=== PATIENT | male | born 1980 | race Caucasian/White ===

== ENCOUNTER 2024-08-16 08:38 | Emergency (ER) | payer OTHER, SELFPAY ==
[2024-08-16 08:56] VITALS: BP 123/78; PULSE 62; RESP 16; TEMP 36.4; O2SAT 99
--- NOTE | 2024-08-16 09:24 | ED.EYEPROB ---
HPI - Eye Problem General Chief complaint: Eye Problems Stated complaint: Right Eye Problem Time Seen by Provider: 08/16/24 09:25 Source: patient Mode of arrival: ambulatory Limitations: no limitations History of Present Illness HPI Narrative: 44-year-old male presented for complaint of right eye redness and irritation for about 6 days. Endorses redness to the outer eye and some clear drainage with crust in the mornings. Reports pain when he closes his eye. Denies photophobia or vision changes or foreign body sensation. He has rinsed the eye with saline. chief complaint: eye pain Related Data Allergies Allergy/AdvReac Type Severity Reaction Status Date / Time No Known Allergies Allergy Verified 08/16/24 08:54 Review of Systems Review of Systems: CONSTITUTIONAL: Denies body aches, fever, chills EYES:Endorses redness drainage, and pain to right eye; Denies swelling, visual changes,FB sensation, photophobia ENT: Denies rhinorrhea, congestion, sore throat, or otalgia. CARDIOVASCULAR: Denies chest pain, palpitations RESPIRATORY: Denies cough or dyspnea. GASTROINTESTINAL: Denies abdominal pain, nausea, vomiting, or diarrhea. SKIN: Denies rash, itching, or wounds. MUSCULOSKELETAL: Denies back pain, joint pain, or myalgia. NEUROLOGIC: Denies headache, numbness, tingling, or weakness. All systems reviewed & are unremarkable except as noted in HPI and below PMFSH Comments At time of signature, I have reviewed and agree with nursing past medical, surgical, social and family history unless otherwise noted. Please see nursing chart for further information. There is no relevant family history pertinent to the presenting complaint Exam Narrative: GENERAL: Well-appearing HEAD: Normocephalic, atraumatic. EYES: right conjunctival injection, right lateral lower lid with pinpoint external hordeolum. no eye lid swelling/redness/drainage. PERRLA EOMI. Lid eversion shows no FB. No corneal abrasion on del angel lamp exam. ENT: Mucous membranes pink and moist. No rhinorrhea. CHEST: Clear to auscultation. HEART: Regular rate and rhythm. SKIN: Warm, dry, no rash. Normal skin turgor. Course Course Emergency Course: Patient is aware of diagnosis, understands and agrees to treatment plan. Anticipatory guidance given. Patient agrees to follow-up as directed and is aware of reasons to seek care at the emergency department. Portions of this record may have been created with voice recognition software Level of Care: Express Care Visit Vital Signs Vital signs: Vital Signs Temperature 97.5 F L 08/16/24 08:56 Pulse Rate 62 08/16/24 08:56 Respiratory Rate 16 08/16/24 08:56 Blood Pressure 123/78 08/16/24 08:56 Pulse Oximetry 99 08/16/24 08:56 Oxygen Delivery Room Air 08/16/24 08:56 Temperature 97.5 F L 08/16/24 08:56 Pulse Rate 62 08/16/24 08:56 Respiratory Rate 16 08/16/24 08:56 Blood Pressure 123/78 08/16/24 08:56 Pulse Oximetry 99 08/16/24 08:56 Oxygen Delivery Room Air 08/16/24 08:56 Procedures FB Removal Eye Foreign Body #1: Topical anesthetic used: tetracaine Evidence of corneal penetration: No Technique: other (del angel lamp) Procedure performed under: other (direct visualization) Patient tolerated procedure: well and no complications Foreign Body Removal Narrative: right eye was anesthetized with 1 drop of tetracaine and anesthesia was achieved. Lid was everted and examined for foreign body. No foreign body, corneal abrasion, or ulceration identified with Del Angel lamp. The eye was flushed with eye wash. Pt tolerated procedure well. MDM - Eye Problem MDM Narrative Medical decision making narrative: Discussed physical exam findings.Reviewed RX. Advised supportive measures and signs/symptoms to go to the ER. Pt is appropriate for outpt treatment and f/u. Differential Diagnosis Differential diagnosis: Likely corneal abrasi
== END 2024-08-16 09:51 | disposition home or self-care (01) ==
PROVIDERS: Emergency Provider Nurse Practitioner Family
DX: H10.9 Unspecified conjunctivitis (principal); H00.012 Hordeolum externum right lower eyelid
CPT/HCPCS: 99213; A9270; G0463